=== PATIENT | female | born 2000 | race African-American/Black ===

== ENCOUNTER 2020-06-01 10:59 | Emergency (ER) | payer MEDICAID ==
[~2020-06-01] VITALS: Ht 157.5 cm; Wt 70.3 kg
[2020-06-01 11:05] VITALS: BP 114/60
[2020-06-01] MEDS ORDERED: LIDOCAINE 1%/EPI 1:100,000 10 ML VIAL IJ ONE (11:30)
[2020-06-01] MEDS ORDERED: BACITRACIN ZINC OINT UDPKT TOP ONE (11:30)
[2020-06-01] MEDS ORDERED: LIDOCAINE HCL/EPINEPHRINE 1%-EPI 1:100,000 20 ML VIAL INFIL NR ×2 (11:45→12:15)
== END 2020-06-01 13:34 | disposition home or self-care (01) ==
LOC: ER 10:59
DX: L02.416 Cutaneous abscess of left lower limb (principal)
CPT/HCPCS: 99283; J3490; Z7610